=== PATIENT | female | born 1940 | race Caucasian/White ===

== ENCOUNTER → 2017-01-30 | Outpatient (CLI) | payer OTHER ==
[2017-01-30 09:30] LABS: HEMATOCRIT 43.7 % (37-47); MEAN CELL VOLUME 92.2 fL (80-100); MEAN CORPUSCULAR HEMOGLOBIN 31.4 pg (25-34); MEAN CORPUSCULAR HGB CONC 34.1 g/dl (32-36); MEAN PLATELET VOLUME 9.5 fL (7.4-10.4); PLATELET COUNT 152 K/uL (130-400); RED BLOOD COUNT 4.74 M/uL (4.2-5.4); WHITE BLOOD COUNT 4.61 K/uL (4.8-10.8)
[2017-01-30 10:07] LABS: ALT/SGPT 39 U/L (12-78); AST/SGOT 29 U/L (15-37); BLOOD UREA NITROGEN 16 mg/dl (7-18); BUN/CREATININE RATIO 16.8 (10-20); CALCIUM 9.1 mg/dl (8.5-10.1); CARBON DIOXIDE 26 mmol/L (21-32); CHLORIDE 108 mmol/L (98-107); CREATININE 0.97 mg/dl (0.60-1.20); GLUCOSE 89 mg/dl (70-99); POTASSIUM 3.8 mmol/L (3.5-5.1); SODIUM 142 mmol/L (136-145)
[2017-01-30 10:18] LABS: ALKALINE PHOSPHATASE 83 U/L (45-117); CHOLESTEROL 157 mg/dl (0-200); CHOLESTEROL/HDL RATIO 3.3; HDL CHOLESTEROL 47 mg/dl; LDL CHOLESTEROL CALCULATED 83 mg/dl; TRIGLYCERIDES 136 mg/dl (0-150); VERY LOW DENSITY LIPOPROT CALC 27 mg/dl
[2017-01-30 11:10] LABS: BASO ABS # 0.08 K/uL (0-0.2); BASOPHIL % 1.8 %; COMPLETE YES; EOSINOPHIL % 2.6 %; LARGE GRANULAR LYMPH ABSOLUTE 1.25 K/uL; LARGE GRANULAR LYMPHOCYTE % 27.2 %; LYMPH ABS # 1.05 K/uL (1.2-3.4); LYMPHOCYTE % 22.8 %; NEUTROPHILS % 34.2 %; SMUDGE CELLS PRESENT
== END | disposition home or self-care (01) ==
LOC: C.LAB 08:12
PROVIDERS: ATTEND Internal Medicine
DX: M81.0 Age-related osteoporosis without current pathological fracture (principal)

== ENCOUNTER → 2017-02-26 | Outpatient (CLI) | payer OTHER ==
--- NOTE | 2017-02-27 13:57 | MAMMOGRAPHY REPORT ---
BILATERAL DIGITAL SCREENING MAMMOGRAM WITH CAD: 02/26/2017 CLINICAL HISTORY: Routine screening. Patient has no complaints. TECHNIQUE: Current study was also evaluated with a Computer Aided Detection (CAD) system. Bilateral CC and MLO views were obtained. COMPARISON: Comparison is made to exams dated: 10/01/2015 mammogram, 08/18/2014 mammogram, 07/15/2013 mammogram, 03/03/2012 mammogram, 11/26/2010 mammogram - [facility], and 07/04/2009 ma mmogram - [facility]. BREAST COMPOSITION: There are scattered areas of fibroglandular density in both breasts. FINDINGS: No suspicious masses, calcifications, or areas of architectural distortion are noted in ei ther breast. There has been no significant interval change compared to prior exams. Scattered benign -appearing left breast calcifications are again noted. IMPRESSION: ACR BI-RADS CATEGORY 2: BENIGN There is no mammographic evidence of malignancy. A 1 year screening mammogram is recommended. The pa tient will receive written notification of the results. Approximately 10% of breast cancers are not detected with mammography. A negative mammographic report should not delay biopsy if a clinically suggestive mass is present. Georgiana Butterfield M.D. /:02/26/2017 14:45:24 Amalgamator: Radha Wright, [facility] letter sent: Normal 1/2 BI-RADS Code: ACR BI-RADS Category 2: Benign
== END | disposition home or self-care (01) ==
LOC: C.MAMM 13:48
PROVIDERS: ATTEND Internal Medicine
DX: Z12.31 Encounter for screening mammogram for malignant neoplasm of breast (principal); M81.0 Age-related osteoporosis without current pathological fracture

== ENCOUNTER → 2017-11-27 | Outpatient (CLI) | payer OTHER | END | disposition home or self-care (01) | LOC: C.CPL 12:13 | DX: Z01.810 Encounter for preprocedural cardiovascular examination (principal) ==

== ENCOUNTER → 2018-03-03 | Outpatient (CLI) | payer OTHER ==
--- NOTE | 2018-03-04 15:41 | MAMMOGRAPHY REPORT ---
BILATERAL DIGITAL SCREENING MAMMOGRAM TOMOSYNTHESIS WITH CAD: 03/03/2018 CLINICAL HISTORY: Routine screening. TECHNIQUE: The study was acquired using full field digital technology and interpreted from soft copy. Breast tomosynthesis in addition to standard 2D mammography was performed. Current study was also ev aluated with a Computer Aided Detection (CAD) system. COMPARISON: Comparison is made to exams dated: 02/26/2017 mammogram, 10/01/2015 mammogram, 08/18/2014 m ammogram, 07/15/2013 mammogram, 03/03/2012 mammogram, and 11/26/2010 mammogram - [facility]. BREAST COMPOSITION: There are scattered areas of fibroglandular density in both breasts. FINDINGS: There are stable benign rounded and coarse calcifications in the left greater than right br east. No suspicious mass, architectural distortion or cluster of microcalcifications is seen. IMPRESSION: ACR BI-RADS CATEGORY 1: NEGATIVE There is no mammographic evidence of malignancy. A 1 year screening mammogram is recommended.( 019) The patient will receive written notification of the results. Some breast cancers are not detected with mammography. A negative mammographic report should not royce y biopsy if a clinically suggestive mass is present. Mikala Damon M.D. ay/:03/03/2018 16:33:35 Cashier Ticket Selling: RT Denise([place])(M), [facility] letter sent: Normal 1/2 BI-RADS Code: ACR BI-RADS Category 1: Negative
== END | disposition home or self-care (01) ==
LOC: C.MAMM 11:13
PROVIDERS: ATTEND Internal Medicine
DX: Z12.31 Encounter for screening mammogram for malignant neoplasm of breast (principal)

== ENCOUNTER 2023-10-08 12:00 | Observation (INO) ==
[2023-10-08 12:33] LABS: Appearance Urine Clear (Clear); Bacteria Urine Automated Negative (Negative); Bilirubin Urine Negative (Negative); Blood Urine Negative (Negative); Cast Urine Automated 0 /lpf (0-5); Color Urine Yellow; Epithelial Cell Urine Auto >30 /lpf (0-5); Glucose Urine UA Negative (Negative); Ketones Urine Negative (Negative); Leukocyte Esterase Urine Negative (Negative); Nitrite Urine Negative (Negative); RBC Urine Automated 0-4 /hpf (0-4); Specific Gravity Urine 1.014 (1.000-1.030); Urobilinogen Urine Negative (Negative); pH Urine 7.5 (4.5-7.5)
[2023-10-08 12:35] LABS: Protein Urine Trace (Negative)
[2023-10-08 12:39] LABS: Basophils # (auto) 0.04 K/uL (0.00-0.20); Basophils % (auto) 0.4 %; Eosinophils # (auto) 0.05 K/uL (0.00-0.50); Eosinophils % (auto) 0.4 %; Hematocrit (blood only) 41.6 % (37.0-47.0); Hemoglobin 14.6 g/dl (12.0-16.0); Immature Granulocytes # (auto) 0.02 K/uL (0.01-0.20); Immature Granulocytes % (auto) 0.2 %; Lymphocytes # (auto) 1.46 K/uL (1.20-3.40); Mean Corpuscular Hemoglobin 31.7 pg (25.0-34.0); Mean Corpuscular Hgb Conc 35.1 g/dL (32.0-36.0); Mean Corpuscular Volume 90.4 fL (80.0-100.0); Mean Platelet Volume 9.9 fL (9.4-12.4); Monocytes # (auto) 0.74 K/uL (0.11-0.59); Monocytes % (auto) 6.6 %; Neutrophils # (auto) 8.94 K/uL (1.40-6.50); Neutrophils % (auto) 79.4 %; Platelet Count 149 K/uL (130-400); RDW Standard Deviation 42.7 fL (36.4-46.3); White Blood Count 11.25 K/ul (4.8-10.8)
[2023-10-08 12:51] LABS: Alanine Aminotransferase 19 U/L (7-52); Albumin Globulin Ratio 1.4 (0.9-2); Albumin Level 4.2 gm/dl (3.4-5.0); Alkaline Phosphatase 67 U/L (34-104); Anion Gap 8 (3-11); BUN Creatinine Ratio 13.5 (10-20); Bilirubin,Total 0.7 mg/dl (0.2-1.0); Blood Urea Nitrogen 13 mg/dl (6-23); Calcium 9.7 mg/dl (8.6-10.3); Carbon Dioxide 26 mmol/L (21-32); Chloride 104 mmol/L (98-107); Est GFR (African American) 62.9 ml/min; Est GFR (Non-African American) 54.3 ml/min; Globulin 3.1 gm/dl (2.5-4.0); Glucose 120 mg/dl (70-99(Fasting)); Lipase 15 U/L (11-82); Sodium 138 mmol/L (136-145); Total Protein 7.3 gm/dl (6.0-8.3)
[2023-10-08] MEDS: OPTIRAY 320 100ml IV ONE (13:29)
[2023-10-08 13:41] LABS: Potassium 3.7 mmol/L (3.5-5.1)
--- NOTE | 2023-10-08 13:56 | CT Scan Report ---
CT OF THE ABDOMEN AND PELVIS WITH CONTRAST CLINICAL HISTORY: Abdominal pain, nausea and vomiting. COMPARISON STUDY: None. TECHNIQUE: Following IV administration of 94 mL of Optiray, axial images of the abdomen and pelvis we re obtained from the lung bases to the proximal femurs. Images were reviewed in the axial, sagittal, and coronal planes. IV contrast was administered without complication. Automated exposure control wa s utilized for the study. A dose lowering technique was utilized adhering to the principles of ALARA . CT DOSE: 1297.56 mGy.cm FINDINGS: Lung bases are unremarkable. No pneumatosis, free air or portal venous gas is present. Ther e are multiple gallstones within the gallbladder. There is no pericholecystic infiltration. Liver, sp benita, adrenal glands and pancreas are unremarkable. The kidneys are unremarkable. There is no hydrone phrosis. There is extensive colonic diverticulosis without evidence for acute diverticulitis. There i s no evidence for a bowel obstruction. There is a 8 mm calculus within the base of the appendix. Prox imal to mid appendix is moderately dilated, measuring 1.3 cm in caliber. There is mild periappendicea l stranding. No free air or abscess is present. IMPRESSION: 1. Findings consistent with acute appendicitis. 8 mm appendicolith within the base of the appendix wi th moderate appendiceal dilatation and mild periappendiceal inflammation. No free air. No abscess. 2. Extensive colonic diverticulosis. No evidence for acute diverticulitis. 3. Cholelithiasis. ACT 112: Negative or not required by law. Electronically signed by: Jose Luis Dia M.D. 10/08/2023 1:54 PM
[2023-10-08] MEDS ORDERED: ACETAMINOPHEN 1000 MG/100 ML IV IV PRN (14:46)
[2023-10-08] MEDS: ACETAMINOPHEN 1000 MG/100 ML IV IV ONE (14:51)
--- NOTE | 2023-10-08 15:01 | Emergency Department Note ---
Impression & Plan Acute appendicitis ED Provider Note NAME: SUKHWINDER RESENDEZ AGE: 83 SEX: F : 1940 ARRIVES VIA: Walk-In INFORMANT: Patient, ED PROVIDER(S): Jose G Ibrahim MD CHIEF COMPLAINT: Abdominal pain HPI: This is a 83-year-old female presenting for lower abdominal pain. Patient notes that around 5 in the morning she woke up use the bathroom and upon going back to bed she notes excruciating abdominal pain, diffusely. She notes that it currently 9/10. She notes she was only previously had a tubal ligation otherwise no abdominal surgery. Still has her appendix and gallbladder. Otherwise she notes no diarrhea or constipation. Does report nausea and vomiting. No chest pain or shortness of breath. No fevers. ROS: See above HPI for pertinent positives & negatives. A total of 10 systems reviewed and were otherwise negative. PAST MEDICAL HISTORY: See Below PAST SURGICAL HISTORY: See Below FAMILY HISTORY: See Below SOCIAL HISTORY: See Below HOME MEDICATIONS: See Below ALLERGIES: See Below VITALS: See Below PHYSICAL EXAMINATION: General: resting comfortably in no acute distress Head: Normocephalic and atraumatic Eyes: Normal inspection, extraocular muscles intact Ear, nose, throat: Normal external exam Neck: Normal range of motion Respiratory: lungs clear to auscultation bilaterally Cardiovascular: Regular rate/rhythm, no murmur GI: soft, mild diffuse tenderness Extremities: nontender, moves all extremities Neuro: The patient awake and alert, appropriately conversive, no focal deficits, symmetric faces Skin: Warm, dry, and intact MEDICAL DECISION MAKING: This is an 83-year-old female presents for lower abdominal pain. Patient has a fairly reassuring abdominal exam, no rebound or guarding but is mildly tender. Consider SBO, diverticulitis, appendicitis, cholecystitis, volvulus, mesenteric ischemia -Vital signs are reviewed and within normal limits -Lab work is reviewed showing a slight leukocytosis otherwise no significant abnormalities such as transaminitis or pancreatitis from lipase elevation, urinalysis reveals no UTI -Patient CT Abdo/pelvis does reveal acute appendicitis. Started on broad- spectrum antibiotics at this time for appendicitis -Discussed case with on-call surgical team, Alverto Doran CRNP who will evaluate patient at bedside with the surgical team. -Patient be taken to surgery however there are 2 emergent cases I had of her. -Surgical team request admission to medical service -Patient care accepted under hospitalist service Differential diagnosis: See above ER treatment provided: See below Diagnostics interpreted by me: ECG: ECG independently interpreted by me with normal sinus rhythm, rate of 86, left axis deviation, normal VA, normal QRS, normal QTc, no ST segment elevations consistent with STEMI criteria Cardiac Monitoring: An order was placed for continuous cardiac monitoring. The monitor shows a rate of 86 with sinus rhythm. Laboratory studies: As stated above and show below. Imaging studies: See below. Past Med/Surg History Medical History Osteopenia Shoulder pain, bilateral Bilateral hand pain Dyspnea Chest pressure Tubular adenoma Chronic low back pain Diaphragmatic hernia Migraine headache CKD (chronic kidney disease), stage III Diverticulosis Osteopenia after menopause Lumbar radiculopathy Surgical History History of tubal ligation Mohs defect of neck Cataract Family History Mother Liver cancer Cancer Father Coronary heart disease Hypertension Heart disease Myocardial infarction Daughter Migraine headache Sister Osteoporosis COPD (chronic obstructive pulmonary disease) Unknown Skin cancer Denies family history of Ovarian cancer Prostate cancer Breast cancer Colorectal cancer Social History Smoking Status: Never smoker Second Hand Exposure: No; Do You Dip or Chew Tobacco: No; Hx Alcohol Use: No Hx Substance Use: No Preferred Language: Monegasque Communication Ability: Effective Visual Impairment: Limited Hearing Ability: Normal Wall Worker Required: No marital status: Current Living Situation: Spouse current occupational status: retired How many Children do You have: 3 Feels Safe at Home: Yes Childhood Exposure to Second-Hand Smoke: No Diet: regular caffeine: Yes Dental Care, Regularly: Yes Physical Activity Frequency: Does not Exercise Seatbelt Use: always Sunscreen Use: Yes Allergies Allergies Allergy/AdvReac Type Severity Reaction Status Date / Time No Known Allergies Allergy Verified 10/08/23 15:35 Home Meds Home Medications Medication Instructions Recorded Confirmed aspirin 81 mg tablet,delayed 81 mg PO DAILY 02/09/19 10/08/23 release multivitamin (Daily Multi-Vitamin 1 tab PO DAILY 02/09/19 10/08/23 tablet) omeprazole 20 mg capsule,delayed 20 mg PO DAILY 02/09/19 10/08/23 release ascorbic acid (vitamin C) 500 mg 500 mg PO Q OTHER DAY 10/16/20 10/08/23 tablet cholecalciferol (vitamin D3) 25 5,000 unit PO DAILY 10/16/20 10/08/23 mcg (1,000 unit) capsule lactobacillus combination no.4 3 3,000 mmu cells PO DAILY 03/05/22 10/08/23 billion cell capsule (Probiotic) psyllium husk 0.52 gram capsule 0.52 g PO 3XWK PRN Constipation 11/05/22 10/08/23 (Daily Fiber) cranberry conc 250 mg-vit C 30 1 tab PO DAILY 06/05/23 10/08/23 mg-Bacillus coagulans 3.5 mg tablet (Cranberry Urinary Tract Health) potassium chloride 10 mEq 10 meq PO DAILY 10/08/23 10/08/23 tablet,extended release(part/cryst) (Klor-Con M) Previous Rx's Medication Instructions Recorded nystatin-triamcinolone 100,000 1 applic topical TID PRN 01/14/22 unit/gram-0.1 % topical ointment inflammation #60 grams lorazepam 0.5 mg tablet 0.5 mg PO DAILY PRN anxiety #30 03/10/23 tabs atenolol 50 mg tablet 50 mg PO DAILY #90 tabs 06/19/23 dicyclomine 10 mg capsule 10 mg PO DAILY #90 caps 06/19/23 hydrochlorothiazide 25 mg tablet 12.5 mg (1/2 x 25 mg) PO DAILY #45 06/19/23 tabs levothyroxine 25 mcg tablet 25 mcg PO DAILY #90 tabs 06/19/23 estradiol 0.01% (0.1 mg/gram) 1 appful vaginal DAILY #42.5 grams 10/06/23 vaginal cream Results & Data (ED) Vital Signs Vital Signs - 24 hr 10/08/23 12:02 10/08/23 12:58 10/08/23 12:59 Temperature 35.7 C L Temperature Source Temporal Artery Scan Pulse Rate 88 84 Pulse Rate [Apical] 80 Pulse Rate from SpO2 Sensor 83 Pulse Rhythm [Apical] Regular Respiratory Rate 20 25 H 23 Respiratory Effort / Characteristics Non-Labored Spontaneous Non-Labored Spontaneous Respiratory Depth Normal Normal Respiratory Pattern Blood Pressure 170/80 H Blood Pressure [Left Arm] 138/79 Blood Pressure Mean 110 Blood Pressure Mean [Left Arm] 98 Pulse Oximetry 94 97 93 Oxygen Delivery Method Room Air Room Air Sepsis New/Unexplained Change in Mental Status No Sepsis Action Taken by Nursing No Action Required 10/08/23 13:00 10/08/23 13:03 10/08/23 14:21 Temperature Temperature Source Pulse Rate 81 85 94 H Pulse Rate [Apical] Pulse Rate from SpO2 Sensor 81 90 Pulse Rhythm [Apical] Respiratory Rate 24 29 H Respiratory Effort / Characteristics Respiratory Depth Respiratory Pattern Blood Pressure Blood Pressure [Left Arm] Blood Pressure Mean Blood Pressure Mean [Left Arm] Pulse Oximetry 93 Oxygen Delivery Method Sepsis New/Unexplained Change in Mental Status Sepsis Action Taken by Nursing 10/08/23 14:30 10/08/23 15:00 10/08/23 15:07 Temperature Temperature Source Pulse Rate 85 93 H 92 H Pulse Rate [Apical] Pulse Rate from SpO2 Sensor 85 92 H 92 H Pulse Rhythm [Apical] Respiratory Rate 32 H 21 29 H Respiratory Effort / Characteristics Respiratory Depth Respiratory Pattern Blood Pressure 159/83 H Blood Pressure [Left Arm] Blood Pressure Mean 108 Blood Pressure Mean [Left Arm] Pulse Oximetry 91 92 93 Oxygen Delivery Method Sepsis New/Unexplained Change in Mental Status Sepsis Action Taken by Nursing 10/08/23 15:07 10/08/23 15:45 10/08/23 15:45 Temperature Temperature Source Pulse Rate Pulse Rate [Apical] 92 H Pulse Rate from SpO2 Sensor Pulse Rhythm [Apical] Respiratory Rate 18 Respiratory Effort / Characteristics Non-Labored Spontaneous Respiratory Depth Normal Respiratory Pattern Regular Blood Pressure 159/83 H Blood Pressure [Left Arm] 133/85 Blood Pressure Mean 95 Blood Pressure Mean [Left Arm] 101 Pulse Oximetry 93 93 Oxygen Delivery Method Room Air Room Air Sepsis New/Unexplained Change in Mental Status Sepsis Action Taken by Nursing 10/08/23 17:41 10/08/23 17:55 Temperature 37.4 C Temperature Source Oral Pulse Rate Pulse Rate [Apical] 86 Pulse Rate from SpO2 Sensor Pulse Rhythm [Apical] Regular Respiratory Rate 18 Respiratory Effort / Characteristics Respiratory Depth Respiratory Pattern Blood Pressure Blood Pressure [Left Arm] 131/66 Blood Pressure Mean Blood Pressure Mean [Left Arm] 87 Pulse Oximetry 93 Oxygen Delivery Method Room Air Room Air Sepsis New/Unexplained Change in Mental Status Sepsis Action Taken by Nursing Laboratory Data 10/08/23 11:11 10/08/23 13:03 Lab Results 10/08/23 10/08/23 Range/Units 11:11 13:03 WBC 11.25 H (4.8-10.8) K/ul RBC 4.60 (4.20-5.40) M/uL Hgb 14.6 (12.0-16.0) g/dl Hct 41.6 (37.0-47.0) % MCV 90.4 (80.0-100.0) fL MCH 31.7 (25.0-34.0) pg MCHC 35.1 (32.0-36.0) g/dL RDW Std Deviation 42.7 (36.4-46.3) fL RDW Coeff of Ap 13.0 (11.5-14.5) % Plt Count 149 (130-400) K/uL MPV 9.9 (9.4-12.4) fL Immature Gran % (Auto) 0.2 % Neut % (Auto) 79.4 % Lymph % (Auto) 13.0 % [place] % (Auto) 6.6 % Eos % (Auto) 0.4 % Baso % (Auto) 0.4 % Neut # (Auto) 8.94 H (1.40-6.50) K/uL Lymph # (Auto) 1.46 (1.20-3.40) K/uL [place] # (Auto) 0.74 H (0.11-0.59) K/uL Eos # (Auto) 0.05 (0.00-0.50) K/uL Baso # (Auto) 0.04 (0.00-0.20) K/uL Immature Gran # (Auto) 0.02 (0.01-0.20) K/uL Sodium 138 (136-145) mmol/L Potassium TNP 3.7 Chloride 104 (98-107) mmol/L Carbon Dioxide 26 (21-32) mmol/L Anion Gap 8 (3-11) BUN 13 (6-23) mg/dl Creatinine 0.96 (0.6-1.2) mg/dl Est Cr Clr Drug Dosing Not Reportable Est GFR ( Amer) 62.9 ml/min Est GFR (Non-Af Amer) 54.3 ml/min BUN/Creatinine Ratio 13.5 (10-20) Glucose 120 H (70-99(Fasting)) mg/dl Calcium 9.7 (8.6-10.3) mg/dl Total Bilirubin 0.7 (0.2-1.0) mg/dl AST TNP 24 ALT 19 (7-52) U/L Alkaline Phosphatase 67 (34-104) U/L Total Protein 7.3 (6.0-8.3) gm/dl Albumin 4.2 (3.4-5.0) gm/dl Globulin 3.1 (2.5-4.0) gm/dl Albumin/Globulin Ratio 1.4 (0.9-2) Lipase 15 (11-82) U/L Urine Color Yellow Urine Appearance Clear (Clear) Urine pH 7.5 (4.5-7.5) Ur Specific [place] 1.014 (1.000-1.030) Urine Protein Trace H (Negative) Urine Glucose (UA) Negative (Negative) Urine Ketones Negative (Negative) Urine Blood Negative (Negative) Urine Nitrite Negative (Negative) Urine Bilirubin Negative (Negative) Urine Urobilinogen Negative (Negative) Ur Leukocyte Esterase Negative (Negative) Urine WBC (Auto) 1-5 (0-5) /hpf Urine RBC (Auto) 0-4 (0-4) /hpf U Hyaline Cast (Auto) 0 (0-5) /lpf U Epithel Cells (Auto) >30 H (0-5) /lpf Urine Bacteria (Auto) Negative (Negative) Administered Medications Lactated Ringer's (Lr) 1,000 mls @ 100 mls/hr IV .Q10H DARIUS Stop: 10/09/23 12:44 Last Admin: 10/08/23 17:10 Dose: 100 mls/hr Documented By: VITOR Morphine Sulfate (Morphine Sulfate 2 Mg/Ml Carp) 2 mg IV Q4H PRN PRN Reason: Pain(5+) Stop: 10/22/23 16:39 Last Admin: 10/08/23 17:10 Dose: 2 mg Documented By: VITOR Discontinued Medications Acetaminophen (Acetaminophen 1000 Mg/100 Ml Iv) Confirm Administered Dose 1,000 mg IV .STK-MED ONE Stop: 10/08/23 14:48 Last Admin: 10/08/23 14:51 Dose: 1,000 mg Documented By: NICOLE Metronidazole (Flagyl) 500 mg in 100 mls @ 100 mls/hr IV NOW STA; Protocol Stop: 10/08/23 15:37 Last Infusion: 10/08/23 17:21 Dose: Infused Documented By: Admin: 10/08/23 15:40 Dose: 100 mls/hr Documented By: VITOR Ceftriaxone Sodium (Rocephin) 2,000 mg in 50 mls @ 100 mls/hr IV NOW STA Stop: 10/08/23 15:07 Last Infusion: 10/08/23 15:44 Dose: Infused Documented By: Admin: 10/08/23 15:07 Dose: 100 mls/hr Documented By: NICOLE Pantoprazole Sodium 40 mg/ (Syringe) 10 mls @ 5 mls/min IV NOW ONE Stop: 10/08/23 17:01 Last Admin: 10/08/23 17:23 Dose: 5 mls/min Documented By: VITOR Ioversol (Optiray 320 100ml) 94 ml IV ONCE ONE Stop: 10/08/23 13:29 Last Admin: 10/08/23 13:29 Dose: 94 ml Documented By: RAJINDER Imaging Data Radiologist's Impression: Abdomen/Pelvis CT 10/08/23 12:58 CT OF THE ABDOMEN AND PELVIS WITH CONTRAST CLINICAL HISTORY: Abdominal pain, nausea and vomiting. COMPARISON STUDY: None. TECHNIQUE: Following IV administration of 94 mL of Optiray, axial images of the abdomen and pelvis were obtained from the lung bases to the proximal femurs. Images were reviewed in the axial, sagittal, and coronal planes. IV contrast was administered without complication. Automated exposure control was utilized for the study. A dose lowering technique was utilized adhering to the principles of ALARA. CT DOSE: 1297.56 mGy.cm FINDINGS: Lung bases are unremarkable. No pneumatosis, free air or portal venous gas is present. There are multiple gallstones within the gallbladder. There is no pericholecystic infiltration. Liver, spleen, adrenal glands and pancreas are unremarkable. The kidneys are unremarkable. There is no hydronephrosis. There is extensive colonic diverticulosis without evidence for acute diverticulitis. There is no evidence for a bowel obstruction. There is a 8 mm calculus within the base of the appendix. Proximal to mid appendix is moderately dilated, measuring 1.3 cm in caliber. There is mild periappendiceal stranding. No free air or abscess is present. IMPRESSION: 1. Findings consistent with acute appendicitis. 8 mm appendicolith within the base of the appendix with moderate appendiceal dilatation and mild periappendiceal inflammation. No free air. No abscess. 2. Extensive colonic diverticulosis. No evidence for acute diverticulitis. 3. Cholelithiasis. ACT 112: Negative or not required by law. Electronically signed by: Jose Luis Dia M.D. 10/08/2023 1:54 PM Discharge Plan Visit Data Chief Complaint: Abdominal Pain Stated Complaint: UPPER ABD PAIN, VOMITING ED Provider: Jose G Ibrahim Discharge Problem: Acute appendicitis Discharge Instructions Interventions: ED Discharge Assessment Last Done: 10/08/23 17:41
[2023-10-08] MEDS: cefTRIAXone SODIUM 2,000 MG/50 ML BAG IV STA (15:07)
--- NOTE | 2023-10-08 15:17 | Surgery Consultation ---
Date of Consultation October 08, 2023 Assessment & Plan (1) Acute appendicitis: Patient is a 83 yo female that presented to the [facility] ER today with c./o abdominal pain that started around 0500. She describes the pain as generalized to her abdomen but more in the RLQ. She has associated nausea and one episode of vomiting. On exam her abdomen is soft , TTP in all quadrants, but more in RLQ with guarding. She is afebrile, elevated BP , HR and RR. She has elevated WBC at 11.2, a CT scan of abd/pelvis is showing acute appendicitis. CT scan reviewed with patient and we are recommending surgical intervention to include a Laparoscopic Appendectomy with Dr. Dorado. Surgical procedure explained to the patient and risks reviewed to include bleeding, infection, injury to other organs, need for further surgery, anesthesia complications, and . All questions answered. Admit to medicine Keep NPO IV Fluids for hydration IV antiemetic PRN IV antibiotics she was given Flagyl and Ceftriaxone IV analgesic PRN Hopeful for surgery this afternoon however will depend on OR availability Supervising Physician Co-Signing Physician Notes I have seen this patient and reviewed her imaging. The patient will be taken to the OR for laparoscopic appendectomy. The details of the procedure have been explained to her including the risks and benefits. All of her questions were answered and consent is on the chart. History of Present Illness Reason for Consultation: abdominal pain Requesting Physician: Dr. Ibrahim History of Present Illness Patient is a 83 yo female with PMH of GERD, Hypothyroidism, HTN, Hypokalemia Anxiety, CKD, IBS (spastic colon per patient) that presented to the [facility] ER today with c./o abdominal pain that started around 0500. She describes the pain as generalized to her abdomen but more in the RLQ. She has associated nausea and one episode of vomiting. Denies fevers but endorses chills. No CP , SOB. Takes a daily ASA , otherwise no blood thinners, and has been NPO since last night. Drank water at 8am. Reports past surgical history of a tubal ligation. Gets routine colonoscopy every 5years. Allergies Allergy/AdvReac Type Severity Reaction Status Date / Time No Known Allergies Allergy Verified 10/08/23 15:35 Home Medications Medication Instructions Recorded Confirmed Type aspirin 81 mg tablet,delayed 81 mg PO DAILY 02/09/19 10/08/23 History release multivitamin (Daily Multi-Vitamin 1 tab PO DAILY 02/09/19 10/08/23 History tablet) omeprazole 20 mg capsule,delayed 20 mg PO DAILY 02/09/19 10/08/23 History release ascorbic acid (vitamin C) 500 mg 500 mg PO Q OTHER DAY 10/16/20 10/08/23 History tablet cholecalciferol (vitamin D3) 25 5,000 unit PO DAILY 10/16/20 10/08/23 History mcg (1,000 unit) capsule nystatin-triamcinolone 100,000 1 applic topical TID PRN 01/14/22 10/08/23 Rx unit/gram-0.1 % topical ointment inflammation #60 grams lactobacillus combination no.4 3 3,000 mmu cells PO DAILY 03/05/22 10/08/23 History billion cell capsule (Probiotic) psyllium husk 0.52 gram capsule 0.52 g PO 3XWK PRN Constipation 11/05/22 4 History (Daily Fiber) lorazepam 0.5 mg tablet 0.5 mg PO DAILY PRN anxiety #30 03/10/23 10/08/23 Rx tabs cranberry conc 250 mg-vit C 30 1 tab PO DAILY 06/05/23 10/08/23 History mg-Bacillus coagulans 3.5 mg tablet (Cranberry Urinary Tract Health) atenolol 50 mg tablet 50 mg PO DAILY #90 tabs 06/19/23 10/08/23 Rx dicyclomine 10 mg capsule 10 mg PO DAILY #90 caps 06/19/23 10/08/23 Rx hydrochlorothiazide 25 mg tablet 12.5 mg (1/2 x 25 mg) PO DAILY #45 06/19/23 10/08/23 Rx tabs levothyroxine 25 mcg tablet 25 mcg PO DAILY #90 tabs 06/19/23 10/08/23 Rx estradiol 0.01% (0.1 mg/gram) 1 appful vaginal DAILY #42.5 grams 10/06/23 10/08/23 Rx vaginal cream potassium chloride 10 mEq 10 meq PO DAILY 10/08/23 10/08/23 History tablet,extended release(part/cryst) (KljennyCon M) Patient History Medical History Osteopenia Shoulder pain, bilateral Bilateral hand pain Dyspnea Chest pressure Tubular adenoma Chronic low back pain Diaphragmatic hernia Migraine headache CKD (chronic kidney disease), stage III Diverticulosis Osteopenia after menopause Lumbar radiculopathy Surgical History History of tubal ligation Mohs defect of neck Cataract Family History Mother Liver cancer Cancer Father Coronary heart disease Hypertension Heart disease Myocardial infarction Daughter Migraine headache Sister Osteoporosis COPD (chronic obstructive pulmonary disease) Unknown Skin cancer Denies family history of Ovarian cancer Prostate cancer Breast cancer Colorectal cancer Social History Smoking Status: Never smoker Second Hand Exposure: No; Do You Dip or Chew Tobacco: No; Hx Alcohol Use: No Hx Substance Use: No Preferred Language: Welsh Communication Ability: Effective Visual Impairment: Limited Hearing Ability: Normal 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 marital status: Current Living Situation: Spouse current occupational status: retired How many Children do You have: 3 Feels Safe at Home: Yes Childhood Exposure to Second-Hand Smoke: No Diet: regular caffeine: Yes Dental Care, Regularly: Yes Physical Activity Frequency: Does not Exercise Seatbelt Use: always Sunscreen Use: Yes Review of Systems Constitutional: + chills; no fever Eyes: + corrective lenses Ear, Nose, Mouth, Throat: no hearing loss Respiratory: no dyspnea Cardiovascular: no chest pain Gastrointestinal: + abdominal pain, + nausea and + vomitin g Musculoskeletal: no muscle weakness Integumentary: no rash Physical Exam Physical Exam: alert oriented Constitutional: cooperative and comfortable; no acute distress ENMT: external ear and nose normal, oropharynx normal Neck: trachea midline, no thyromegaly Respiratory: normal respiratory effort, lungs clear to auscultation Cardiovascular: RRR, no murmur, no edema Gastrointestinal (Abdomen): Inspection/Auscultation: abdomen not distended Percussion/Palpation: + abdomen tender, + guarding and abdomen soft; abdomen not rigid Musculoskeletal: no cyanosis or clubbing, extremities motor strength 5/5 Skin: no rashes, warm and dry Results & Data Vital Signs (Past 12 Hours) Vital Signs Temp Pulse Pulse Resp BP BP Pulse Ox 03/21/24 15:07 159/83 H 10/08/23 15:07 92 H 29 H 159/83 H 93 10/08/23 15:00 93 H 21 92 10/08/23 14:30 85 32 H 91 10/08/23 14:21 94 H 29 H 10/08/23 13:03 85 10/08/23 13:00 81 24 93 10/08/23 12:59 84 23 93 10/08/23 12:58 80 25 H 138/79 97 10/08/23 12:02 96.3 F L 88 20 170/80 H 94 O2 Del Method 10/08/23 15:07 10/08/23 15:07 10/08/23 15:00 10/08/23 14:30 10/08/23 14:21 10/08/23 13:03 10/08/23 13:00 10/08/23 12:59 10/08/23 12:58 Room Air 10/08/23 12:02 Room Air Diagnostic Findings [place], [place] [phone] CT Scan Report Patient: SUKHWINDER RESENDEZ Admit Date: 10/08/23 MR#: [id number] Address1: [address] [place] [address] Acct ID:[id number] Address2: Date: 1940 [facility] Zip: [place] [address] Age: 83 Location: ED Sex: F Room/Bed: Att Phy: Diagnosis: UPPER ABD PAIN, VOMITING Kimberly Phy: Santhosh Srinivasan DO Service Date: 10/08/23 Fam Phy: Interpreting Phy: Jose Luis Dia MDAdmit Phy: Ordering Phy: Jose G Ibrahim MD cc: ~ CT OF THE ABDOMEN AND PELVIS WITH CONTRAST CLINICAL HISTORY: Abdominal pain, nausea and vomiting. COMPARISON STUDY: None. TECHNIQUE: Following IV administration of 94 mL of Optiray, axial images of the abdomen and pelvis were obtained from the lung bases to the proximal femurs. Images were reviewed in the axial, sagittal, and coronal planes. IV contrast was administered without complication. Automated exposure control was utilized for the study. A dose lowering technique was utilized adhering to the principles of ALARA. CT DOSE: 1297.56 mGy.cm FINDINGS: Lung bases are unremarkable. No pneumatosis, free air or portal venous gas is present. There are multiple gallstones within the gallbladder. There is no pericholecystic infiltration. Liver, spleen, adrenal glands and pancreas are unremarkable. The kidneys are unremarkable. There is no hydronephrosis. There is extensive colonic diverticulosis without evidence for acute diverticulitis. There is no evidence for a bowel obstruction. There is a 8 mm calculus within the base of the appendix. Proximal to mid appendix is moderately dilated, measuring 1.3 cm in caliber. There is mild periappendiceal stranding. No free air or abscess is present. IMPRESSION: 1. Findings consistent with acute appendicitis. 8 mm appendicolith within the base of the appendix with moderate appendiceal dilatation and mild periappendiceal inflammation. No free air. No abscess. 2. Extensive colonic diverticulosis. No evidence for acute diverticulitis. 3. Cholelithiasis. ACT 112: Negative or not required by law. Electronically signed by: Jose Luis Dia M.D. 10/08/2023 1:54 PM Dictated: 10/08/23 1345 Transcribed: 10/08/23 1347 Results CMP Results: Na 138 mmol/L (136-145) 10/08/23 K 3.7 mmol/L (3.5-5.1) 10/08/23 Cl 104 mmol/L (98-107) 10/08/23 CO2 26 mmol/L (21-32) 10/08/23 Anion Gap 8 (3-11) 10/08/23 BUN 13 mg/dl (6-23) 10/08/23 Creatinine 0.96 mg/dl (0.6-1.2) 10/08/23 Estimated GFR ( Amer) 62.9 ml/min 10/08/23 Estimated GFR (Non-Af Amer) 54.3 ml/min 10/08/23 BUN/Creatinine Ratio 13.5 (10-20) 10/08/23 Glu 120 mg/dl (70-99(Fasting)) H 10/08/23 Ca 9.7 mg/dl (8.6-10.3) 10/08/23 Total Bilirubin 0.7 mg/dl (0.2-1.0) 10/08/23 AST 24 U/L (13-39) 10/08/23 ALT 19 U/L (7-52) 10/08/23 Alkaline Phosphatase 67 U/L (34-104) 10/08/23 TP 7.3 gm/dl (6.0-8.3) 10/08/23 Albumin 4.2 gm/dl (3.4-5.0) 10/08/23 Globulin 3.1 gm/dl (2.5-4.0) 10/08/23 Albumin/Globulin Ratio 1.4 (0.9-2) 10/08/23 Results CBC w Diff Results: RBC 4.60 M/uL (4.20-5.40) 10/08/23 WBC 11.25 K/ul (4.8-10.8) H 10/08/23 Hgb 14.6 g/dl (12.0-16.0) 10/08/23 Hct 41.6 % (37.0-47.0) 10/08/23 MCV 90.4 fL (80.0-100.0) 10/08/23 MCH 31.7 pg (25.0-34.0) 10/08/23 MCHC 35.1 g/dL (32.0-36.0) 10/08/23 RDW Standard Deviation 42.7 fL (36.4-46.3) 10/08/23 RDW Coefficient of Variation 13.0 % (11.5-14.5) 10/08/23 Plt Count 149 K/uL (130-400) 10/08/23 MPV 9.9 fL (9.4-12.4) 10/08/23 Neutrophils (%) (Auto) 79.4 % 10/08/23 Lymphocytes (%) (Auto) 13.0 % 10/08/23 Monocytes # (Auto) 0.74 K/uL (0.11-0.59) H 10/08/23 Eosinophils # (Auto) 0.05 K/uL (0.00-0.50) 10/08/23 Immature Granulocyte % (Auto) 0.2 % 10/08/23 Neutrophils # (Auto) 8.94 K/uL (1.40-6.50) H 10/08/23 Lymphocytes # (Auto) 1.46 K/uL (1.20-3.40) 10/08/23 Monocytes # (Auto) 0.74 K/uL (0.11-0.59) H 10/08/23 Eosinophils # (Auto) 0.05 K/uL (0.00-0.50) 10/08/23 Basophils # (Auto) 0.04 K/uL (0.00-0.20) 10/08/23 Immature Granulocyte # (Auto) 0.02 K/uL (0.01-0.20) 4 ANC 1.16 K/uL (1.4-6.5) L 06/27/21 ALC 3.06 K/uL (1.2-3.4) 06/27/21 Neutrophils % (Manual) 25.7 % 06/27/21 Lymphocytes % (Manual) 44.1 % 06/27/21 Reactive Lymphocytes % (Manual) 2.7 % 06/27/21 Large Granular Lymphocytes 21.2 % 06/27/21 Monocytes % (Manual) 2.7 % 06/27/21 Eosinophils % (Manual) 2.7 % 06/27/21 Basophils % (Manual) 0.9 % 06/27/21 Neutrophils # (Manual) 1.16 K/uL (1.4-6.5) L 06/27/21 Lymphocytes # (Manual) 1.98 K/uL (1.2-3.4) 06/27/21 Reactive Lymphocytes # 0.12 K/uL 06/27/21 Absolute Large Granular Lymphocytes 0.95 K/uL 04/09 Monocytes # (Manual) 0.12 K/uL (0.11-0.59) 06/27/21 Eosinophils # (Manual) 0.12 K/uL (0-0.5) 06/27/21 Basophils # (Manual) 0.04 K/uL (0-0.2) 06/27/21 Red Blood Cell Morphology Unremarkable 06/27/21 PG Care Time/CCT Total # of Minutes Spent Total Time Spent with Patient: Total time spent is greater than 50% in coordination of care (as documented) at patient's floor/unit and/or counseling patient: Coding Level of Care Code 62035 INT INP/OBS CARE 2/55MIN Diagnoses Acute appendicitis K35.80
[2023-10-08] MEDS: metroNIDAZOLE 500 MG/100 ML BAG IV STA (15:40)
--- NOTE | 2023-10-08 16:27 | History & Physical Report ---
Date of Service October 08, 2023 Assessment & Plan (1) Acute appendicitis: Plan: -Admit to med/tele -Currently stable and non-toxic appearing -Presented to the ED with acute onset of RLQ abd pain with radiation to the LLQ which started around 0500 this am -Noted to have a leukocytosis of 11, labs are otherwise unremarkable -CT of the abd/pelvis w/con shows "acute appendicitis. 8 mm appendicolith within the base of the appendix with moderate appendiceal dilatation and mild periappendiceal inflammation. No free air. No abscess." -General surgery has been consulted and will be taking the patient to the OR this evening after their other cases -S/P one dose of Ceftriaxone and flagyl in the ED, will continue with both for now -Will obtain blood cultures on admission, unfortunately she already received abx in the ED -Will start maintenance LR at 100 mL/hr x 2 bags for now -Pain control with tylenol and morphine -BL ALISA's for DVT PPX prior to surgery -Strict NPO -AM CBC, CMP, mag, PT/INR (2) Hypothyroidism: Plan: -Continue levothyroxine when able (3) GERD (gastroesophageal reflux disease): Plan: -Will start IV pantoprazole daily while NPO for stress ulcer PPX (4) HTN (hypertension): Plan: -Stable -Continue to hold antihypertensives in the perioperative period Plan The patient was discussed with Dr. Vincent at the time of the admission History of Present Illness Chief Complaint: abdominal pain Primary Care Provider: DO Ramesh Pooletrude is an 88 year old female with a PMH significant for HTN, hypothyroidism, stage 3a CKD, anxiety, GERD, and IBS who presented to the [facility] ED on 10/08/23 with a chief complaint of abdominal pain. She was noted to be mildly tachycardic with a HF in the 90's but was otherwise stable. Labs were significant for a leukocytosis of with neutrophil predominance of 8. CMP and UA were unremarkable. CT of the abd/pelvis w/con was read as "1. Findings consistent with acute appendicitis. 8 mm appendicolith within the base of the appendix with moderate appendiceal dilatation and mild periappendiceal inflammation. No free air. No abscess. 2. Extensive colonic diverticulosis. No evidence for acute diverticulitis. 3. Cholelithiasis". General surgey was consulted and will take her to the OR this evening after they are done with two other emergent cases. Prior to admission the patient was given 1gm IV tylenol, a dose of ceftriaxone, dose of flagyl. At the time of the exam the patient was sitting in bed in no acute distress with her Daughter and bedside. She states that she was woken at 0500 this morning with acute onset of severe RLQ abdominal pain with radiation to the left lower abdomen. Due to her symptoms she presented to the ED. Has had multiple episodes of nausea and non-blood emesis. Did not have anything to eat/drink this am, did not have any home medications prior to arrival. Had chills but denies recent fever, chest pain, SOB, cough, dysuria, hematuria, melena, diarrhea, LE swelling, and recent trauma. Pain is currently a 3/10 after 1gm IV tylenol. She is a full code; her daughter would be her primary decision maker if she is unable to make decisions herself. Please refer to Dr. Vincent' attestation for any changes to the treatment plan Allergies Allergy/AdvReac Type Severity Reaction Status Date / Time No Known Allergies Allergy Verified 10/08/23 15:35 Home Medications Medication Instructions Recorded Confirmed Type aspirin 81 mg tablet,delayed 81 mg PO DAILY 02/09/19 10/08/23 History release multivitamin (Daily Multi-Vitamin 1 tab PO DAILY 02/09/19 10/08/23 History tablet) omeprazole 20 mg capsule,delayed 20 mg PO DAILY 02/09/19 10/08/23 History release ascorbic acid (vitamin C) 500 mg 500 mg PO Q OTHER DAY 10/16/20 10/08/23 History tablet cholecalciferol (vitamin D3) 25 5,000 unit PO DAILY 10/16/20 10/08/23 History mcg (1,000 unit) capsule nystatin-triamcinolone 100,000 1 applic topical TID PRN 01/14/22 10/08/23 Rx unit/gram-0.1 % topical ointment inflammation #60 grams lactobacillus combination no.4 3 3,000 mmu cells PO DAILY 03/05/22 10/08/23 History billion cell capsule (Probiotic) psyllium husk 0.52 gram capsule 0.52 g PO 3XWK PRN Constipation 11/05/22 10/08/23 History (Daily Fiber) lorazepam 0.5 mg tablet 0.5 mg PO DAILY PRN anxiety #30 03/10/23 10/08/23 Rx tabs cranberry conc 250 mg-vit C 30 1 tab PO DAILY 06/05/23 10/08/23 History mg-Bacillus coagulans 3.5 mg tablet (Cranberry Urinary Tract Health) atenolol 50 mg tablet 50 mg PO DAILY #90 tabs 06/19/23 10/08/23 Rx dicyclomine 10 mg capsule 10 mg PO DAILY #90 caps 06/19/23 10/08/23 Rx hydrochlorothiazide 25 mg tablet 12.5 mg (1/2 x 25 mg) PO DAILY #45 06/19/23 10/08/23 Rx tabs levothyroxine 25 mcg tablet 25 mcg PO DAILY #90 tabs 06/19/23 10/08/23 Rx estradiol 0.01% (0.1 mg/gram) 1 appful vaginal DAILY #42.5 grams 10/06/23 Rx vaginal cream potassium chloride 10 mEq 10 meq PO DAILY 10/08/23 10/08/23 History tablet,extended release(part/cryst) (Klor-Con M) Past Med/Surg History Medical History Osteopenia Shoulder pain, bilateral Bilateral hand pain Dyspnea Chest pressure Tubular adenoma Chronic low back pain Diaphragmatic hernia Migraine headache CKD (chronic kidney disease), stage III Diverticulosis Osteopenia after menopause Lumbar radiculopathy Surgical History History of tubal ligation Mohs defect of neck Cataract Family History Mother Liver cancer Cancer Father Coronary heart disease Hypertension Heart disease Myocardial infarction Daughter Migraine headache Sister Osteoporosis COPD (chronic obstructive pulmonary disease) Unknown Skin cancer Denies family history of Ovarian cancer Prostate cancer Breast cancer Colorectal cancer Social History Smoking Status: Never smoker Second Hand Exposure: No; Do You Dip or Chew Tobacco: No; Hx Alcohol Use: No Hx Substance Use: No Preferred Language: Cameroonian Communication Ability: Effective Visual Impairment: Limited Hearing Ability: Normal Insights Analyst Required: No marital status: Current Living Situation: Spouse current occupational status: retired How many Children do You have: 3 Feels Safe at Home: Yes Childhood Exposure to Second-Hand Smoke: No Diet: regular caffeine: Yes Dental Care, Regularly: Yes Physical Activity Frequency: Does not Exercise Seatbelt Use: always Sunscreen Use: Yes Physical Exam Physical Exam: Physical Exam: General: In no acute distress, stated age, well-nourished, good hygiene, non- toxic appearing HEENT: Normocephalic, atraumatic, no scleral icterus, pupils around round, symmetrical, and reactive to light, dry mucus membranes, trachea midline, no thyromegaly Chest/Pulm: No respiratory distress, symmetrical chest expansion, clear breath sounds throughout Cardiac: RRR, no murmurs noted Abdomen: Negative for ascites and bruising, normoactive bowel sounds, soft, trender to percussion over the RLQ, tender to palpation in the BL lower quadrants with rebound tenderness over the RLQ Musculoskeletal: Symmetrical and without signs of acute trauma, upper and lower extremities with full ROM, no atrophy, spasticity, or flaccidity Extremities: Radial, dorsalis pedis, and posterior tibial pulses are intact and symmetrical, no edema noted in the BL LE's Skin: Warm, dry, no rashes , lesions, or scars noted Neuro: Alert and oriented to person, place, month, year, and president, no focal defects, no tremors noted Psych: No acute distress, calm and cooperative during the exam Results & Data Results & Data Vital Signs (Past 12 Hours) Vital Signs Temp Pulse Pulse Resp BP BP Pulse Ox 10/08/23 15:45 92 H 18 133/85 93 10/08/23 15:45 93 10/08/23 15:07 159/83 H 10/08/23 15:07 92 H 29 H 159/83 H 93 10/08/23 15:00 93 H 21 92 10/08/23 14:30 85 32 H 91 10/08/23 14:21 94 H 29 H 10/08/23 13:03 85 10/08/23 13:00 81 24 93 10/08/23 12:59 84 23 93 10/08/23 12:58 80 25 H 138/79 97 10/08/23 12:02 35.7 C L 88 20 170/80 H 94 O2 Del Method 10/08/23 15:45 Room Air 10/08/23 15:45 Room Air 10/08/23 15:07 10/08/23 15:07 10/08/23 15:00 10/08/23 14:30 10/08/23 14:21 10/08/23 13:03 10/08/23 13:00 10/08/23 12:59 10/08/23 12:58 Room Air 10/08/23 12:02 Room Air Laboratory Results Abnormal lab results 10/08/23 Range/Units 11:11 WBC 11.25 H (4.8-10.8) K/ul Neut # (Auto) 8.94 H (1.40-6.50) K/uL [place] # (Auto) 0.74 H (0.11-0.59) K/uL Glucose 120 H (70-99(Fasting)) mg/dl Urine Protein Trace H (Negative) U Epithel Cells (Auto) >30 H (0-5) /lpf Diagnostic Findings Abdomen/Pelvis CT 10/08/23 12:58 CT OF THE ABDOMEN AND PELVIS WITH CONTRAST CLINICAL HISTORY: Abdominal pain, nausea and vomiting. COMPARISON STUDY: None. TECHNIQUE: Following IV administration of 94 mL of Optiray, axial images of the abdomen and pelvis were obtained from the lung bases to the proximal femurs. Images were reviewed in the axial, sagittal, and coronal planes. IV contrast was administered without complication. Automated exposure control was utilized for the study. A dose lowering technique was utilized adhering to the principles of ALARA. CT DOSE: 1297.56 mGy.cm FINDINGS: Lung bases are unremarkable. No pneumatosis, free air or portal venous gas is present. There are multiple gallstones within the gallbladder. There is no pericholecystic infiltration. Liver, spleen, adrenal glands and pancreas are unremarkable. The kidneys are unremarkable. There is no hydronephrosis. There is extensive colonic diverticulosis without evidence for acute diverticulitis. There is no evidence for a bowel obstruction. There is a 8 mm calculus within the base of the appendix. Proximal to mid appendix is moderately dilated, measuring 1.3 cm in caliber. There is mild periappendiceal stranding. No free air or abscess is present. IMPRESSION: 1. Findings consistent with acute appendicitis. 8 mm appendicolith within the base of the appendix with moderate appendiceal dilatation and mild periappendiceal inflammation. No free air. No abscess. 2. Extensive colonic diverticulosis. No evidence for acute diverticulitis. 3. Cholelithiasis. ACT 112: Negative or not required by law. Electronically signed by: Jose Luis Dia M.D. 10/08/2023 1:54 PM ECG Additional Comments: Will obtain at the time of admission Code Status & VTE Plan Code Status Full code VTE Prophylaxis Plan VTE Prophylaxis will be ordered: Yes Supervising Physician Co-Signing Physician Notes I have personally seen, evaluated and examined the patient. I have also personally discussed the management of the patient with the resident physician/MARTHA and I agree with the exam findings documented in the history and physical examination and the documented assessment and plan unless otherwise stated below. Brief Exam: In general very pleasant 83-year-old female who is alert and oriented x 3 at the time of my exam she interacts appropriately and pleasantly. Accompanied by her and daughter at the time of my examination. HEENT: Normocephalic atraumatic. Heart: Regular rate and rhythm no murmur or ectopy or rub. Lungs: Diminished but clear. Abdomen is tender to palpation diffusely. No peritoneal signs at this time. But she is exquisitely tender in the right lower quadrant especially. Extremities: Intact no clubbing cyanosis or edema. Neurologically she is alert and oriented x 3. Assessment/plan: As described above General surgery consultation OR planned for today. Diet will be advanced postoperatively per surgery. PG Care Time/CCT Total # of Minutes Spent Total Time Spent with Patient: Total time spent is greater than 50% in coordination of care (as documented) at patient's floor/unit and/or counseling patient: Coding [place] [address] INT INP/OBS CARE 3/75MIN Patient Type Established Medical Decision Making High Complexity Diagnoses Acute appendicitis K35.80 Acquired hypothyroidism E03.9 Hypothyroidism type: acquired Gastroesophageal reflux disease, esophagitis presence not specified K21.9 Esophagitis presence: esophagitis presence not specified Essential hypertension I10 Hypertension type: essential hypertension (2) Hypothyroidism Hypothyroidism type: acquired Qualified Code(s): E03.9 - Hypothyroidism, unspecified (3) GERD (gastroesophageal reflux disease) Esophagitis presence: esophagitis presence not specified Qualified Code(s): K21.9 - Gastro-esophageal reflux disease without esophagitis (4) HTN (hypertension) Hypertension type: essential hypertension Qualified Code(s): I10 - Essential (primary) hypertension
--- NOTE | 2023-10-08 16:50 | Anesthesiology Consultation ---
Date of Service October 08, 2023 Assessment & Plan Chart Review Chart Review: Acceptable Risk for Surgery and Patient NOT seen in Pre Admission Testing Consults Requested none History Surgery Operation Date: 10/08/23 14:10 Proposed Procedures p Laparoscopic Appendectomy - Marion Dorado DO Height/Weight Height: 4 ft 11 in Weight: 80.4 kg Allergies Allergy/AdvReac Type Severity Reaction Status Date / Time No Known Allergies Allergy Verified 10/08/23 15:35 Medications Home Medications Medication Instructions Recorded Confirmed Last Taken aspirin 81 mg tablet,delayed 81 mg PO DAILY 02/09/19 10/08/23 10/07/23 release multivitamin (Daily Multi-Vitamin 1 tab PO DAILY 02/09/19 10/08/23 10/07/23 tablet) omeprazole 20 mg capsule,delayed 20 mg PO DAILY 02/09/19 10/08/23 10/07/23 release ascorbic acid (vitamin C) 500 mg 500 mg PO Q OTHER DAY 10/16/20 10/08/23 10/07/23 tablet cholecalciferol (vitamin D3) 25 5,000 unit PO DAILY 10/16/20 10/08/23 10/07/23 mcg (1,000 unit) capsule nystatin-triamcinolone 100,000 1 applic topical TID PRN 01/14/22 10/08/23 Unknown unit/gram-0.1 % topical ointment inflammation #60 grams lactobacillus combination no.4 3 3,000 mmu cells PO DAILY 03/05/22 10/08/23 10/07/23 billion cell capsule (Probiotic) psyllium husk 0.52 gram capsule 0.52 g PO 3XWK PRN Constipation 11/05/22 10/08/23 Unknown (Daily Fiber) lorazepam 0.5 mg tablet 0.5 mg PO DAILY PRN anxiety #30 03/10/23 10/08/23 10/08/23 08:00 tabs cranberry conc 250 mg-vit C 30 1 tab PO DAILY 06/05/23 10/08/23 10/07/23 mg-Bacillus coagulans 3.5 mg tablet (Cranberry Urinary Tract Health) atenolol 50 mg tablet 50 mg PO DAILY #90 tabs 06/19/23 10/08/23 10/07/23 dicyclomine 10 mg capsule 10 mg PO DAILY #90 caps 06/19/23 10/08/23 10/07/23 hydrochlorothiazide 25 mg tablet 12.5 mg (1/2 x 25 mg) PO DAILY #45 06/19/23 10/08/23 10/07/23 tabs levothyroxine 25 mcg tablet 25 mcg PO DAILY #90 tabs 06/19/23 10/08/23 10/07/23 estradiol 0.01% (0.1 mg/gram) 1 appful vaginal DAILY #42.5 grams 10/06/23 10/08/23 10/07/23 vaginal cream potassium chloride 10 mEq 10 meq PO DAILY 10/08/23 10/08/23 10/07/23 tablet,extended release(part/cryst) (Ziggy Muro) Past Medical History Medical History Osteopenia Shoulder pain, bilateral Bilateral hand pain Dyspnea Chest pressure Tubular adenoma Chronic low back pain Diaphragmatic hernia Migraine headache CKD (chronic kidney disease), stage III Diverticulosis Osteopenia after menopause Lumbar radiculopathy Past Family History Family History Mother Liver cancer Cancer Father Coronary heart disease Hypertension Heart disease Myocardial infarction Daughter Migraine headache Sister Osteoporosis COPD (chronic obstructive pulmonary disease) Unknown Skin cancer Denies family history of Ovarian cancer Prostate cancer Breast cancer Colorectal cancer Past Surgical History Surgical History History of tubal ligation Mohs defect of neck Cataract Social History Smoking Status: Never smoker Do You Dip or Chew Tobacco: No Hx Alcohol Use: No Hx Substance Use: No Physical Exam Vital Signs Last Vital Signs Temp 96.3 F L 10/08/23 12:02 Pulse 92 H 10/08/23 15:45 Resp 18 10/08/23 15:45 BP 133/85 10/08/23 15:45 Pulse Ox 93 10/08/23 15:45 O2 Del Method Room Air 10/08/23 15:45 Testing Laboratory Results 10/08/23 11:11 10/08/23 13:03 Urine Color Yellow 10/08/23 11:11 Urine Appearance Clear (Clear) 10/08/23 11:11 Urine pH 7.5 (4.5-7.5) 10/08/23 11:11 Ur Specific [place] 1.014 (1.000-1.030) 10/08/23 11:11 Urine Protein Trace (Negative) H 10/08/23 11:11 Urine Glucose (UA) Negative (Negative) 10/08/23 11:11 Urine Ketones Negative (Negative) 10/08/23 11:11 Urine Nitrite Negative (Negative) 10/08/23 11:11 Ur Leukocyte Esterase Negative (Negative) 10/08/23 11:11 Urine WBC (Auto) 1-5 /hpf (0-5) 10/08/23 11:11 Urine RBC (Auto) 0-4 /hpf (0-4) 10/08/23 11:11 U Hyaline Cast (Auto) 0 /lpf (0-5) 10/08/23 11:11 U Epithel Cells (Auto) >30 /lpf (0-5) H 10/08/23 11:11 Urine Bacteria (Auto) Negative (Negative) 10/08/23 11:11
[2023-10-08] MEDS: MoRPHine SULFATE 2 MG/ML CARP IV PRN (17:10)
[2023-10-08] MEDS: LACTATED RINGER'S 1,000 ML IV SCH (17:10)
[2023-10-08] MEDS: PANTOprazole 40 MG in SYRINGE 0 ML IV ONE (17:23)
[2023-10-08] MEDS ORDERED: ONDANSETRON INJ 2 MG/ML 2 ML VIAL IV PRN ×2 (17:39→18:11)
[2023-10-08] MEDS ORDERED: ATROPINE SULFATE 0.1 MG/ML 10ML SYR IV PRN (18:11)
[2023-10-08] MEDS ORDERED: ePHEDrine sulfate 50 MG/ML AMP IV PRN (18:11)
[2023-10-08] MEDS ORDERED: fentaNYL citrate PF 100 MCG/2 ML VIAL ONE ×2 (18:39→19:42)
[2023-10-08] MEDS ORDERED: ONDANSETRON INJ 2 MG/ML 2 ML VIAL ONE (18:42)
[2023-10-08] MEDS ORDERED: DEXAMETHASONE SOD INJ 4 MG/ML VIAL ONE (18:42)
[2023-10-08] MEDS ORDERED: PROPOFOL IV EMULSION 10 MG/ML 20 ML VIAL IV ONE (18:42)
[2023-10-08] MEDS ORDERED: GLYCOPYRROLATE 0.2 MG/ML VIAL ONE (18:42)
[2023-10-08] MEDS ORDERED: ROCURONIUM BROMIDE 10 MG/ML 5 ML VIAL IV ONE (18:42)
[2023-10-08] MEDS ORDERED: LIDOCAINE 2% 2 ML VIAL/AMP(20MG/ML) INFIL ONE (18:42)
[2023-10-08] MEDS ORDERED: PHENYLEPHRINE 100MCG/ML 10ML SYR IV ONE (19:29)
[2023-10-08] MEDS ORDERED: SUGAMMADEX SODIUM 200 MG/2 ML VIAL IV ONE (19:41)
[2023-10-08] MEDS: BUPIVACAINE/EPINEPHRINE 0.5% MPF 1:200,000 30 ML VIAL ONE (20:17)
--- NOTE | 2023-10-08 20:28 | Operative Report ---
PG Post Operative Report Pre & Post Diagnosis Operation Date: 10/08/23 14:10 Pre-Op Diagnosis: Acute appendicitis Post-Op Diagnosis: Acute appendicitis I identified the patient and participated in the time-out.: Yes Procedure Operation Date: 10/08/23 14:10 Actual Procedures p Laparoscopic Appendectomy(Not Applicable) - Marion Dorado DO Surgeon Marion Dorado DO [employer] Set Up Operator No surgical instruments inspector Estimated Blood Loss 2 Findings Consistent with Post-Op Diagnosis Specimens Appendix Anesthesia Type General Complications None Indications Acute appendicitis Description of Procedure The patient was brought back to the operating room and placed on the operating room table in supine position. She was connected to cardiac and oxygen monitoring, supplemental O2 was administered. SCDs were applied to bilateral lower extremities. The patient was administered general anesthesia and a secure airway was established. A Patel catheter was inserted. The abdomen was prepped and draped in typical sterile fashion and a timeout was conducted. Local anesthetic was injected into the subcutaneous tissues and skin at the supraumbilical region and a small stab incision was made with an 11 blade. A fter elevating the fascia a Veress needle was used to gain intra-abdominal access and CO2 insufflation was initiated to establish pneumoperitoneum to local pressure 15 mmHg. Once this pressure was reached a 5 mm trocar was inserted using direct visualization with a 5 mm laparoscope and a 5 mm Visiport. Local anesthetic was injected into the skin and subcutaneous tissues at the suprapubic region and left lower quadrant where skin incisions were made large enough to hold a 5 mm trocar at the suprapubic region and a 12 mm trocar in the left lower quadrant. These were also inserted using direct visualization. The right lower quadrant was noted to have small amount of exudative material on the abdominal wall over the area of the cecum. The OR table was positioned and left side down and the appendix was identified thickened and distended in its entirety. The appendix was grasped with a grasper and a purple loaded 45 mm Endo ALVARO was used to ligate and transect the appendix away from the cecum at the base of the appendix. A harmonic was then used to ligate the mesoappendix and appendiceal artery. There was a small amount of oozing that dissipated. The area was investigated thoroughly for hemostasis. This region was copiously irrigated and suction. As hemostasis was confirmed to be achieved the appendix was placed in an Endo Catch bag and removed through the left lower quadrant incision. The appendix was sent to pathology in a labeled container for further analysis. There is no significant fluid noted in the pelvic region. CO2 insufflation was discontinued, instruments were removed and pneumoperitoneum was evacuated. Trocars were removed. The fascia at the left lower quadrant incision was closed with 0 Vicryl suture. All incisions were injected with additional local anesthetic. The skin at the 3 incisions was reapproximated using 4-0 Vicryl suture. The incisions were then sealed with Dermabond. The Patel catheter was removed, the patient was awakened from anesthesia and the secure airway was removed. The patient tolerated the procedure well. She was transferred to recovery in stable condition I attest to the content of the Intraoperative Record and any orders documented therein. Any exceptions are noted below.
[2023-10-08] MEDS: fentaNYL citrate PF 100 MCG/2 ML VIAL IV PRN (20:32)
--- NOTE | 2023-10-08 20:46 | Anesthesiology Progress Note ---
Date of Service October 08, 2023 Anesthesia Post Procedure Vital Signs Vital Signs: Temp Pulse Pulse Resp BP BP BP 10/08/23 20:35 89 18 97/51 L 10/08/23 20:26 99.1 F 84 21 99/50 L 10/08/23 17:55 99.3 F 86 18 131/66 10/08/23 17:41 10/08/23 15:45 92 H 18 133/85 10/08/23 15:45 10/08/23 15:07 159/83 H 10/08/23 15:07 92 H 29 H 159/83 H 10/08/23 15:00 93 H 21 10/08/23 14:30 85 32 H 10/08/23 14:21 94 H 29 H 10/08/23 13:03 85 10/08/23 13:00 81 24 10/08/23 12:59 84 23 10/08/23 12:58 80 25 H 138/79 10/08/23 12:02 96.3 F L 88 20 170/80 H Pulse Ox O2 Del Method O2 Flow Rate 10/08/23 20:35 95 Oxymask 4 10/08/23 20:26 95 Oxymask 6 10/08/23 17:55 93 Room Air 10/08/23 17:41 Room Air 10/08/23 15:45 93 Room Air 10/08/23 15:45 93 Room Air 10/08/23 15:07 10/08/23 15:07 93 10/08/23 15:00 92 10/08/23 14:30 91 10/08/23 14:21 10/08/23 13:03 10/08/23 13:00 93 10/08/23 12:59 93 10/08/23 12:58 97 Room Air 10/08/23 12:02 94 Room Air Pain Intensity Lower Abdomen: Pain Intensity: 4 Transfer of Care Handoff Completed per policy Notes Mental Status: alert / awake / arousable and participated in evaluation Patient Amnestic to Procedure: Yes Nausea / Vomiting: adequately controlled Pain: adequately controlled Airway Patency, RR, SpO2: stable & adequate BP & HR: stable & adequate Hydration State: stable & adequate Anesthetic Complications: no major complications apparent and Pt Satisfied with anesthetic care
[2023-10-08] MEDS: ACETAMINOPHEN 1000 MG/100 ML IV IV PRN (22:25)
[2023-10-08] MEDS: metroNIDAZOLE 500 MG/100 ML BAG IV SCH (22:26)
[2023-10-09 06:49] LABS: Basophils # (auto) 0.01 K/uL (0.00-0.20); Basophils % (auto) 0.1 %; Hematocrit (blood only) 35.2 % (37.0-47.0); Hemoglobin 12.2 g/dl (12.0-16.0); Immature Granulocytes # (auto) 0.04 K/uL (0.01-0.20); Immature Granulocytes % (auto) 0.4 %; Lymphocytes # (auto) 1.38 K/uL (1.20-3.40); Lymphocytes % (auto) 12.3 %; Mean Corpuscular Hemoglobin 31.7 pg (25.0-34.0); Mean Corpuscular Hgb Conc 34.7 g/dL (32.0-36.0); Mean Corpuscular Volume 91.4 fL (80.0-100.0); Mean Platelet Volume 10.3 fL (9.4-12.4); Monocytes # (auto) 0.33 K/uL (0.11-0.59); Monocytes % (auto) 2.9 %; Neutrophils # (auto) 9.47 K/uL (1.40-6.50); Neutrophils % (auto) 84.3 %; Platelet Count 143 K/uL (130-400); RDW Coefficient of Variation 13.5 % (11.5-14.5); RDW Standard Deviation 45.4 fL (36.4-46.3); Red Blood Count 3.85 M/uL (4.20-5.40); White Blood Count 11.23 K/ul (4.8-10.8)
[2023-10-09 07:05] LABS: Albumin Globulin Ratio 1.4 (0.9-2); Albumin Level 3.5 gm/dl (3.4-5.0); BUN Creatinine Ratio 13.9 (10-20); Bilirubin,Total 0.6 mg/dl (0.2-1.0); Calcium 8.5 mg/dl (8.6-10.3); Creatinine Clr Calc Pharmacy 35.8 ml/min; Est GFR (African American) 54.6 ml/min; Est GFR (Non-African American) 47.1 ml/min; Globulin 2.5 gm/dl (2.5-4.0); Magnesium 1.5 mg/dl (1.7-2.4); Potassium 3.8 mmol/L (3.5-5.1)
[2023-10-09] MEDS: PANTOprazole 40 MG in SYRINGE 0 ML IV SCH (11:13)
--- NOTE | 2023-10-09 12:03 | Electrocardiogram Report ---
Test Reason : Blood Pressure : / mmHG Vent. Rate : 086 BPM Atrial Rate : 086 BPM P-R Int : 156 ms QRS Dur : 076 ms QT Int : 370 ms P-R-T Axes : 038 -28 030 degrees QTc Int : 442 ms Normal sinus rhythm Minimal voltage criteria for LVH, may be normal variant Nonspecific ST and T wave abnormality Abnormal ECG When compared with ECG of 27-NOV-2017 12:23, Nonspecific T wave abnormality, worse in Lateral leads Confirmed by Pascual Morales ([id number]) on 10/09/2023 12:03:13 PM Referred By: REFERRED SELF Confirmed By:Derrek Morales
--- NOTE | 2023-10-09 14:26 | Surgery Progress Note ---
<Statement entered by Marion Dorado, DO - 10/12/23 12:27> This patient was seen and examined with the surgical CUSTOMER SUPPORT AGENT Date of Service October 09, 2023 Assessment & Plan (1) Acute appendicitis: Plan: POD 1 Lap Appy Doing well tolerating clears, keep on clears until return of gas, start full liquids at that time for 24 hours, then low fiber for 2 weeks port sites CDI dermabond VSS stable for d/c today pain meds and 3 more days of PO antibiotic sent (total of 5 day course including IV in house ) pt seen with Dr. Dorado Admission and Anticipated Discharge Date Admission Date: October 08, 2023 Subjective Patient report feeling well mild abd discomfort incisional areas no n/v tolerating clears Review of Systems Constitutional: no fever and no chills Eyes: + corrective lenses Ear, Nose, Mouth, Throat: no hearing loss Respiratory: no dyspnea Cardiovascular: no chest pain Gastrointestinal: + abdominal pain; no nausea and no vomit ing Musculoskeletal: no muscle weakness Integumentary: no rash Physical Exam Physical Exam: alert oriented Constitutional: cooperative and comfortable; no acute distress ENMT: external ear and nose normal, oropharynx normal Neck: trachea midline, no thyromegaly Respiratory: normal respiratory effort and able to speak in complete sentences; no respiratory distress Cardiovascular: Rate/Rhythm: regular rate Gastrointestinal (Abdomen): Inspection/Auscultation: abdomen not distended Percussion/Palpation: + abdomen tender and abdomen soft Musculoskeletal: no cyanosis or clubbing, extremities motor strength 5/5 Skin: no rashes, warm and dry Results & Data Vital Signs (Past 12 Hours) Vital Signs Temp Pulse Pulse Resp BP Pulse Ox O2 Del Method 10/09/23 12:29 97.9 F 71 16 105/54 L 93 Room Air 10/09/23 07:53 98.1 F 72 16 114/56 L 92 Nasal Cannula 10/09/23 07:25 65 10/09/23 03:30 97.7 F 71 18 116/66 94 Nasal Cannula 10/09/23 02:56 78 O2 Flow Rate 10/09/23 12:29 10/09/23 07:53 1.5 10/09/23 07:25 10/09/23 03:30 1 10/09/23 02:56 PG Care Time/CCT Total # of Minutes Spent Total Time Spent with Patient: Total time spent is greater than 50% in coordination of care (as documented) at patient's floor/unit and/or counseling patient: Coding Level of Care Code 57703 Post Operative Follow-Up Diagnoses Acute appendicitis K35.80
[2023-10-09] MEDS ORDERED: cefTRIAXone SODIUM 2,000 MG in DEXTROSE 5 % MINI-B 50 ML IV SCH (16:00)
--- NOTE | 2023-10-09 16:01 | Discharge Summary ---
Date of Service October 09, 2023 Admission HPI Per Admitting Provider Irlanda is an 88 year old female with a PMH significant for HTN, hypothyroidism, stage 3a CKD, anxiety, GERD, and IBS who presented to the [facility] ED on 10/08/23 with a chief complaint of abdominal pain. She was noted to be mildly tachycardic with a HF in the 90's but was otherwise stable. Labs were significant for a leukocytosis of with neutrophil predominance of 8. CMP and UA were unremarkable. CT of the abd/pelvis w/con was read as "1. Findings consistent with acute appendicitis. 8 mm appendicolith within the base of the appendix with moderate appendiceal dilatation and mild periappendiceal inflammation. No free air. No abscess. 2. Extensive colonic diverticulosis. No evidence for acute diverticulitis. 3. Cholelithiasis". General surgey was consulted and will take her to the OR this evening after they are done with two other emergent cases. Prior to admission the patient was given 1gm IV tylenol, a dose of ceftriaxone, dose of flagyl. At the time of the exam the patient was sitting in bed in no acute distress with her Daughter and bedside. She states that she was woken at 0500 this morning with acute onset of severe RLQ abdominal pain with radiation to the left lower abdomen. Due to her symptoms she presented to the ED. Has had multiple episodes of nausea and non-blood emesis. Did not have anything to eat/drink this am, did not have any home medications prior to arrival. Had chills but denies recent fever, chest pain, SOB, cough, dysuria, hematuria, melena, diarrhea, LE swelling, and recent trauma. Pain is currently a 3/10 after 1gm IV tylenol. She is a full code; her daughter would be her primary decision maker if she is unable to make decisions herself. Please refer to Dr. Vincent' attestation for any changes to the treatment plan Principal Diagnosis Acute appendicitis, and localized peritonitis Discharge Exam In general she is awake and alert pleasant no distress. HEENT normocephalic atraumatic mucous membranes moist. Breathing unlabored no accessory muscle use good effort. Skin shows no rashes no pallor or icterus. Neuro without focal deficits. Discharge Data Allergies Allergy/AdvReac Type Severity Reaction Status Date / Time No Known Allergies Allergy Verified 10/08/23 15:35 Consultations 10/08/23 16:21 Consult General Surgery Routine 10/08/23 16:23 ED Decision to Admit Stat Procedures Performed Operation Date: 10/08/23 14:10 Actual Procedures p Laparoscopic Appendectomy(Not Applicable) - Marion Dorado DO Ordered Studies 10/08/23 12:58 CT abd pelvis IV con only Stat Hospital Course (1) Acute appendicitis: Postop, doing well, okay for discharge from surgery standpoint. I agree. Medications as per surgery. (2) Hypothyroidism: Home levothyroxine (3) GERD (gastroesophageal reflux disease): (4) HTN (hypertension): Home on home meds Total Time Total Time Spent Total Time Spent (In Minutes): <30 Discharge Plan Discharge Items Patient Disposition: Home - Self-Care Reason For Visit: ACUTE APPENDICITIS Discharge Diagnosis: laparoscopic appendectomy Activity: As commented below Lifting: No more than 10 pounds Bathing Comment: you can shower tomorrow , no baths or pools for 2 weeks Exercise/Sports: Wait until after follow-up appointment Driving/Machine Use: until cleared by surgeon Non-emergency contact: Surgeon Call non-emergency contact if: you have any medication questions, your symptoms worsen, your pain is worsening, your temperature is above 101.5, your wound has increased redness, your wound has increased drainage and your wound pain has increased Follow-up/Referrals: Marion Dorado DO [Physician] - (Please call to schedule follow up in clinic within 2 weeks) Santhosh Srinivasan DO [Primary Care Provider] - Diet: Low Fiber Addtl Attending Provider Instructions: follow up with surgery in ~2 weeks, follow up with your PCP next week to make sure you are recovering appropriately Addtl Sales Director Provider Instructions: You underwent a laparoscopic appendectomy, surgical removal of your appendix on 10/08/[address] Dorado You may shower starting 10/09/23. No soaking in tubs/pools x 2 weeks You may resume a regular diet No heavy lifting greater than 15 pounds over the next 2 weeks You have skin glue over your incisions called dermabond. you may shower with this on. It will tend to dissolve and fall off within a couple weeks. Do not pick at the skin glue Do NOT resume driving if you are taking narcotics for pain. Otherwise wait at least 3 days as long as you feel ready Please call our office if you experience any fevers >101.5F, vomiting, increasing pain/uncontrolled pain, increased wound redness/drainage, or any other concerns Please call our office to schedule an appointment for follow up within 2 weeks Continue clear liquids for 24 hours until or until you start passing gas. Then you can start full liquids. Stay on full liquids for 24 hours then advance to a low fiber for the next 2 weeks. You were sent a prescription for pain medication and antibiotics. Pending Studies at Discharge: Yes Studies:: surgical pathology Stand-Alone Forms: My [facility] Envoy, Smoking Cessation Medications and DC Order Prescriptions: New amoxicillin-pot clavulanate 875-125 mg tablet 1 tab PO Q12H 3 Days Qty: 6 0RF oxycodone 5 mg tablet 5 - 10 mg PO .[id number] no more than 6 tabs in 24hours PRN (Reason: pain) Qty: 15 0RF Continued lorazepam 0.5 mg tablet 0.5 mg PO DAILY PRN (Reason: anxiety) Qty: 30 0RF estradiol 0.01 % (0.1 mg/gram) cream 1 appful vaginal DAILY Qty: 42.5 2RF Cranberry Urinary Tract Health 250-30-3.5 mg tablet 1 tab PO DAILY Probiotic 3 billion cell capsule 3,000 mmu cells PO DAILY Rx Instructions: administer with a meal atenolol 50 mg tablet 50 mg PO DAILY Qty: 90 3RF dicyclomine 10 mg capsule 10 mg PO DAILY Qty: 90 3RF hydrochlorothiazide 25 mg tablet 12.5 mg PO DAILY Qty: 45 3RF levothyroxine 25 mcg tablet 25 mcg PO DAILY Qty: 90 3RF aspirin 81 mg tablet,delayed release (DR/EC) 81 mg PO DAILY multivitamin [Daily Multi-Vitamin] tablet 1 tab PO DAILY omeprazole 20 mg capsule,delayed release(DR/EC) 20 mg PO DAILY ascorbic acid (vitamin C) 500 mg tablet 500 mg PO Q OTHER DAY Patient Comments: 500 mg PO DAILY IN THE WINTER; TAKE OCCASIONALLY DURING WINTER MONTHS cholecalciferol (vitamin D3) 25 mcg (1,000 unit) capsule 5,000 unit PO DAILY psyllium husk [Daily Fiber] 0.52 gram capsule 0.52 g PO 3XWK PRN (Reason: Constipation) nystatin-triamcinolone 100,000-0.1 unit/gram-% ointment 1 applic topical TID PRN (Reason: inflammation) Qty: 60 0RF Rx Instructions: use up to 2 weeks. potassium chloride [Klor-Con M10] 10 mEq tablet,ER particles/crystals 10 meq PO DAILY Rx Instructions: TAKE 1 TABLET DAILY Discharge Orders: Discharge Order (Routine); Ordered 10/09/23 Ordered By: Eran Francois/Other Patient Handouts: Low-Fiber Diet, Full Liquid Diet Dc Admission Data Admit Date/Time: 10/08/23 17:41 Attending Provider: Eran Santos Admit Provider: Anival Vincent Primary Care Provider: Santhosh Srinivasan Other Providers: Marion Dorado; Anival Vincent Other Interventions: Discharge Summary Assessment (RN) Last Done: 10/09/23 14:28 Coding Level of Care Code 83100 IN/OBS DISCH 30 MIN/LESS Diagnoses Acute appendicitis K35.80 Acquired hypothyroidism E03.9 Hypothyroidism type: acquired Gastroesophageal reflux disease, esophagitis presence not specified K21.9 Esophagitis presence: esophagitis presence not specified Essential hypertension I10 Hypertension type: essential hypertension
== END 2023-10-09 15:21 | disposition home or self-care (01) | DRG 399 ==
LOC: ED 12:00 → OR 17:40 → INTOOBSV 17:41 → SUATTDRO 17:41 → 2N 17:41 → OR 18:39